=== PATIENT | female | born 1960 | race Caucasian/White ===

== ENCOUNTER → 2018-01-01 | Outpatient (CLI) | payer OTHER ==
[~2018-01-01] MED LIST: CHOL2000 PO; DICL-201 PO; DULO60CA44 PO; GABA-113 PO; GLC/500 PO; LEVO100T PO; MECL1TAB42 PO; MELO7.5T5 PO; PRLSR20 PO; SIMV40TA2 PO
[2018-01-01 12:27] LABS: BASO % 0.9 %; BASO ABS # 0.07 K/uL (0-0.2); EOS % 3.2 %; EOS ABS # 0.24 K/uL (0-0.5); HEMATOCRIT 42.3 % (37-47); HEMOGLOBIN 13.7 g/dL (12.0-16.0); IG# 0.01 K/uL (0.00-0.02); LYMPH % 39.9 %; LYMPH ABS # 2.98 K/uL (1.2-3.4); MEAN CELL VOLUME 93.6 fL (80-100); MEAN CORPUSCULAR HEMOGLOBIN 30.3 pg (25-34); MEAN CORPUSCULAR HGB CONC 32.4 g/dl (32-36); MEAN PLATELET VOLUME 10.7 fL (7.4-10.4); MONO % 5.8 %; MONO ABS # 0.43 K/uL (0.11-0.59); NEUT % 50.1 %; NEUT ABS # 3.74 K/uL (1.4-6.5); PLATELET COUNT 303 K/uL (130-400); RED CELL DISTRIBUTION WIDTH CV 14.6 % (11.5-14.5); RED CELL DISTRIBUTION WIDTH SD 49.4 fL (36.4-46.3); WHITE BLOOD COUNT 7.47 K/uL (4.8-10.8)
[2018-01-01 12:45] LABS: PTT PATIENT 27.1 SECONDS (21.0-31.0)
--- NOTE | 2018-01-01 13:01 | DIAGNOSTIC IMAGING REPORT ---
CHEST 2 VIEWS ROUTINE CLINICAL HISTORY: Preoperative evaluation. COMPARISON STUDY: No previous studies for comparison. FINDINGS: There is a 9 mm nodular density within the right upper lung. There is no consolidation to suggest pneumonia and there is no evidence for pulmonary edema. A dual lead left subclavian pacemaker is in place. There is mild cardiomegaly without evidence for pulmonary edema. No pneumothorax or pleural effusion is present. IMPRESSION: 1. 9 mm nodular density within the right upper lung. This may reflect a lung nodule or rib lesion. A chest CT is recommended to exclude a pulmonary nodule. 2. No acute cardiopulmonary findings. 3. Mild cardiomegaly. Electronically signed by: Oswald Tejada M.D. 01/01/2018 1:00 PM Dictated Date/Time: 01/01/2018 12:57 PM
[2018-01-01 13:55] LABS: BLOOD UREA NITROGEN 20 mg/dl (7-18); CALCIUM 8.7 mg/dl (8.5-10.1); CARBON DIOXIDE 24 mmol/L (21-32); CREATININE 1.01 mg/dl (0.60-1.20); GLUCOSE 114 mg/dl (70-99); POTASSIUM 3.9 mmol/L (3.5-5.1); SODIUM 141 mmol/L (136-145)
== END | disposition home or self-care (01) ==
LOC: C.CPL 11:27
PROVIDERS: ATTEND Orthopaedic Surgery Orthopaedic Surgery of the Spine
DX: Z01.812 Encounter for preprocedural laboratory examination (principal)

== ENCOUNTER 2018-01-17 08:28 | Inpatient (IN) | payer OTHER ==
[2017-12-30 10:57] VITALS: BMI 45.0
--- NOTE | 2017-12-31 16:23 | PAT Medication Instructions ---
Service Date Dec 31, 2017. Current Home Medication List Cholecalciferol (Vitamin D3), 1 CAP PO BID Diclofenac (Voltaren), 75 MG PO BID Duloxetine Hcl (Cymbalta), 60 MG PO HS Gabapentin (Neurontin), 300 MG PO QID Levothyroxine Sodium (Synthroid), 100 MCG PO QAM Meclizine Hcl (Meclizine Hcl), 1 TAB PO TID PRN for VERTIGO Meloxicam (Mobic), 15 MG PO PRN Metformin Hcl (Glucophage), 500 MG PO BID Omeprazole (Prilosec), 40 MG PO BID Simvastatin (Zocor), 40 MG PO QPM Medication Instructions For Your Scheduled Surgery - Check with surgeon for instructions: Meloxicam (Mobic), 15 MG PO PRN Diclofenac (Voltaren), 75 MG PO BID - Hold the following medications the morning of surgery: Metformin Hcl (Glucophage), 500 MG PO BID Cholecalciferol (Vitamin D3), 1 CAP PO BID Gabapentin (Neurontin), 300 MG PO QID Levothyroxine Sodium (Synthroid), 100 MCG PO QAM Meclizine Hcl (Meclizine Hcl), 1 TAB PO TID PRN for VERTIGO (if needed) Omeprazole (Prilosec), 40 MG PO BID - Take the following medications as scheduled the night before surgery: Omeprazole (Prilosec), 40 MG PO BID Simvastatin (Zocor), 40 MG PO QPM Metformin Hcl (Glucophage), 500 MG PO BID Meclizine Hcl (Meclizine Hcl), 1 TAB PO TID PRN for VERTIGO (if needed) Gabapentin (Neurontin), 300 MG PO QID Duloxetine Hcl (Cymbalta), 60 MG PO HS Cholecalciferol (Vitamin D3), 1 CAP PO BID If you have any questions please call us at [phone] or [phone] or [phone]
[2018-01-01 11:30] VITALS: BMI 45.0
--- NOTE | 2018-01-01 11:59 | PAT Medication Instructions ---
Service Date Jan 01, 2018. Current Home Medication List Cholecalciferol (Vitamin D3), 1 CAP PO BID Diclofenac (Voltaren), 75 MG PO BID Duloxetine Hcl (Cymbalta), 60 MG PO HS Gabapentin (Neurontin), 300 MG PO QID Levothyroxine Sodium (Synthroid), 100 MCG PO QAM Meclizine Hcl (Meclizine Hcl), 1 TAB PO TID PRN for VERTIGO Meloxicam (Mobic), 15 MG PO PRN Metformin Hcl (Glucophage), 500 MG PO BID Omeprazole (Prilosec), 40 MG PO BID Simvastatin (Zocor), 40 MG PO QPM Medication Instructions For Your Scheduled Surgery (corrected medication instructions list) - Check with surgeon for instructions: Meloxicam (Mobic), 15 MG PO PRN Diclofenac (Voltaren), 75 MG PO BID - Hold the following medications the morning of surgery: Metformin Hcl (Glucophage), 500 MG PO BID Cholecalciferol (Vitamin D3), 1 CAP PO BID - Take the following medications the morning of surgery with a sip of water: Gabapentin (Neurontin), 300 MG PO QID Levothyroxine Sodium (Synthroid), 100 MCG PO QAM Meclizine Hcl (Meclizine Hcl), 1 TAB PO TID PRN for VERTIGO (if needed) Omeprazole (Prilosec), 40 MG PO BID - Take the following medications as scheduled the night before surgery: Omeprazole (Prilosec), 40 MG PO BID Simvastatin (Zocor), 40 MG PO QPM Metformin Hcl (Glucophage), 500 MG PO BID Meclizine Hcl (Meclizine Hcl), 1 TAB PO TID PRN for VERTIGO (if needed) Gabapentin (Neurontin), 300 MG PO QID Duloxetine Hcl (Cymbalta), 60 MG PO HS Cholecalciferol (Vitamin D3), 1 CAP PO BID If you have any questions please call us at [phone] or [phone] or [phone]
[2018-01-17] VITALS (8 sets, daily range): BP systolic 92–111; BP diastolic 60–77; PULSE 64–82; TEMP 36.5–36.8; O2SAT 90–96; Ht 162.6 cm; Wt 119.0 kg
[~2018-01-17] VITALS: Ht 162.6 cm; Wt 119.0 kg
[~2018-01-17 08:28] MED LIST changes: +ACETAMINOPHEN 500 MG TAB PO SCH; +CEFAZOLIN 1000MG IV PUSH 7.5 ML IV SCH; +CEFAZOLIN 3000MG IV PUSH 22.5 ML IV SCH; +CeleBREX 200 MG CAP PO SCH; +GABAPENTIN 600 MG PO SCH; +LACTATED RINGER'S 1000ML 1,000 ML IV SCH
[2018-01-17] MEDS ORDERED: MIDAZOLAM HCL 1 MG/ML 2ML VIAL ONE (10:04)
[2018-01-17] MEDS ORDERED: FENTANYL CITRATE INJ 50 MCG/1 ML 2 ML VIAL ONE ×4 (10:04→13:09)
--- NOTE | 2018-01-17 10:20 | History & Physical Bridge Note ---
H&P Re-Evaluation Bridge Note: I have examined the patient, reviewed the History & Physical and in the interval since the performance of the History & Physical I have noted the following changes of clinical significance: No changes noted
--- NOTE | 2018-01-17 10:21 | History and Physical ---
History & Physical Date Jan 17, 2018. Chief Complaint Back and leg pain History of Present Illness The patient is a 57 year old female with complaints of back and leg pain Additional History Hepatic Disease: No Endocrine Disorder: No Kidney Disease: No Hypertension: No Heart Disease: No Bleeding Tendencies: No Infectious Diseases: No Other: Diabetes Allergies Coded Allergies: Bupropion (Verified Allergy, Unknown, HIVES, 01/17/18) Cefaclor (Verified Allergy, Unknown, HIVES, 01/17/18) Home Medications Scheduled Cholecalciferol (Vitamin D3), 1 CAP PO BID Diclofenac (Voltaren), 75 MG PO BID Duloxetine Hcl (Cymbalta), 60 MG PO HS Gabapentin (Neurontin), 300 MG PO QID Levothyroxine Sodium (Synthroid), 100 MCG PO QAM Meloxicam (Mobic), 15 MG PO PRN Metformin Hcl (Glucophage), 500 MG PO BID Omeprazole (Prilosec), 40 MG PO BID Simvastatin (Zocor), 40 MG PO QPM Scheduled PRN Meclizine Hcl (Meclizine Hcl), 1 TAB PO TID PRN for VERTIGO Diagnosis Spinal stenosis with spondylolisthesis and neurogenic claudication Plan of Treatment Removal of hardware L4-S1 L3-4 decompression and fusion
[2018-01-17] MEDS ORDERED: CLINDAMYCIN 600 MG/54 ML D5W IV ONE (10:31)
[2018-01-17] MEDS ORDERED: BACITRACIN 50000 UNIT VIAL ONE (10:45)
[2018-01-17] MEDS ORDERED: BUPIVACAINE/EPINEPHRINE 0.5% MPF 1:200,000 30 ML VIAL ONE (10:45)
[2018-01-17] MEDS ORDERED: BUPIVACAINE 0.5 % 5 MG/1 ML PF 10ML VIAL ONE (10:45)
[2018-01-17] MEDS ORDERED: BUPIVACAINE LIPOSOME 1/3% 266 MG/20 ML VIAL ONE (10:45)
[2018-01-17] MEDS ORDERED: SODIUM CHLORIDE 0.9% PF 50 ML VIAL ONE (10:45)
[2018-01-17] MEDS ORDERED: HYDROmorphone INJ 2 MG/ML SYR/VIAL ONE ×3 (11:30→13:57)
[2018-01-17] MEDS ORDERED: ATROPINE SULFATE 0.1 MG/ML 5ML SYR IV PRN (13:45)
[2018-01-17] MEDS ORDERED: HYDROmorphone INJ 2 MG/ML SYR/VIAL IV PRN (13:45)
[2018-01-17] MEDS ORDERED: ONDANSETRON INJ 2 MG/ML 2 ML VIAL IV PRN ×2 (13:45→14:00)
[2018-01-17] MEDS ORDERED: FLOSEAL HEMOSTATIC MATRIX 10ML TOP ONE (13:49)
[2018-01-17] MEDS ORDERED: LIDOCAINE HCL 2% 2 ML VIAL (20MG/ML) ONE (13:53)
[2018-01-17] MEDS ORDERED: DEXAMETHASONE SOD INJ 4 MG/ML VIAL ONE (13:53)
[2018-01-17] MEDS ORDERED: ROCURONIUM BROMIDE 10 MG/ML 5 ML VIAL ONE (13:53)
[2018-01-17] MEDS ORDERED: PROPOFOL IV EMULSION 10 MG/ML 20 ML VIAL ONE ×2 (13:53→14:06)
[2018-01-17] MEDS ORDERED: ONDANSETRON INJ 2 MG/ML 2 ML VIAL ONE ×2 (13:53→13:58)
[2018-01-17] MEDS ORDERED: VOLUVEN IN NSS ONE (13:53)
[2018-01-17] MEDS ORDERED: EpHEDrine SULFATE 50MG/5ML SYR ONE ×2 (13:53→13:58)
[2018-01-17] MEDS: SODIUM CHLORIDE 0.9% 1000ML 1,000 ML IV SCH ×2 (13:56→20:45)
--- NOTE | 2018-01-17 13:56 | [facility] Operative Report ---
Operative Report Operative Date Jan 17, 2018. Pre-Operative Diagnosis Spinal stenosis with spondylolisthesis and neurogenic claudication Post-Operative Diagnosis Same Procedure(s) Performed 1. Removal of posterior segmental instrumentation L4-5 L5-S1. #2 expiration of fusion L4-5 L5-S1. #3 lumbar decompression medial facetectomies foraminotomies L2-3 L3-4. #4 posterior spinal fusion L3-4. #5 posterior spinal fusion L3-4. #6 interbody fusion L3-4. #7 placement peek cage oh by 22 mm L3-4. #8 placement of local autograft in the posterior gutters. #9 placement of infuse collagen sponge, mass graft the posterior gutters and ostial amp in the interbody space. Surgeon Dr. Chacon Substance Addiction Coordinator Surgeon(s) Carmelo Winkler PA-C Estimated Blood Loss 500 Findings Severe spinal stenosis Specimens A: Explanted hardware, lumbar spine Description of Procedure Patient was met with preoperatively case discussed all questions addressed. After informed consent obtained patient was taken to the operative suite underwent intubation placed in the prone position on the Karthik table on top of the Yunier frame. All bony prominences well-padded eyes inspected to ensure no external pressure placed upon the. This point the lumbar spine was prepped and draped in the normal sterile fashion. Sharp dissection with the assistance of Bovie cautery was performed down to and exposing the lamina and transverse processes of L3 and instrumentation at L4 L5-S1 levels bilaterally. Then proceeded remove the posterior segmental instrumentation at L4-L5 and S1 levels bilaterally. The S1 pedicle screw was broken on the left. Fusion mass was explored. Grossly intact. Then performed complete laminectomy of L3 partial laminectomy of L2 addressing severe bilateral lateral recess stenosis and foraminal disease. Pedicle screws are then placed in L3 and L4 bilaterally with the assistance of fluoroscopy and the appropriately sized yin placed. Through a trans-foraminal approach on the left complete discectomy was performed endplates created to subcortical bleeding bone and a 12 x 22 mm peek cage filled with ostium bone graft tapped in position. Rods then compressed locked in final position bilaterally. The transverse processes of L3 and L4 burred to subcortical bleeding bone. Infuse collagen sponge master graft and local autograft placed in the posterior gutters. 15 round NELSON drain inserted. Approximately 140 cc of Exparel injected into the musculature. Incision was then closed with 1 Vicryl in the fascia 2-0 Vicryl subcutaneously and 4-0 Monocryl for final skin closure Steri-Strips sterile dressings placed. Patient was awakened and taken to PACU in stable condition. Please note Gutierrez Winkler was present throughout the entire procedure involved in patient positioning complex portions of the surgery and final skin closure. I attest to the content of the Intraoperative Record and any orders documented therein. Any exceptions are noted below.
[2018-01-17] MEDS ORDERED: KETOROLAC TROMETHAMINE 30 MG/ML VIAL ONE (13:58)
[2018-01-17] MEDS ORDERED: GLYCOPYRROLATE INJ 0.2 MG/ML VIAL ONE (13:58)
[2018-01-17] MEDS ORDERED: NEOSTIGMINE METHYLSULFATE 1 MG/ML 10ML VIAL ONE (13:58)
[2018-01-17] MEDS ORDERED: ALBUTEROL HFA INHALER 8.5 GM INH ONE (13:58)
[2018-01-17] MEDS ORDERED: ACETAMINOPHEN 500 MG TAB PO PRN (14:00)
[2018-01-17] MEDS ORDERED: ACETAMINOPHEN IV 100 ML IV PRN (14:00)
[2018-01-17] MEDS ORDERED: hydrOXYzine HCL 25 MG TAB PO PRN (14:00)
[2018-01-17] MEDS ORDERED: DO NOT ADMINISTER FLU VACCINE PRN (14:00)
[2018-01-17] MEDS ORDERED: NALOXONE HCL 0.4 MG/1 ML VIAL/CARP IV PRN (14:00)
[2018-01-17] MEDS ORDERED: BISACODYL 10 MG SUPP PR PRN (14:00)
[2018-01-17] MEDS ORDERED: ALUMINUM/MAGNESIUM SUSP 30 ML UDC PO PRN (14:00)
[2018-01-17] MEDS ORDERED: MECLIZINE HCL 12.5 MG TAB PO PRN (14:00)
[2018-01-17] MEDS ORDERED: SOD PHOSPHATE/SOD BIPHOSPHATE ENEMA 132 ML BTL PR PRN (14:00)
[2018-01-17] MEDS ORDERED: FAMOTIDINE 20 MG TAB PO PRN (14:00)
[2018-01-17] MEDS ORDERED: METOCLOPRAMIDE HCL INJ 5 MG/ML 2 ML VIAL IV PRN (14:00)
[2018-01-17] MEDS ORDERED: LORAZEPAM INJ 0.5 MG in SYRINGE 0 ML IV PRN (14:00)
[2018-01-17] MEDS ORDERED: DO NOT ADMINISTER PNEUMOCOCCAL VACCINE PRN (14:00)
[2018-01-17] MEDS ORDERED: LORAZEPAM 0.5 MG TAB PO PRN (14:00)
[2018-01-17] MEDS ORDERED: MAGNESIUM HYDROXIDE SUSP 30 ML UDC PO PRN (14:00)
[2018-01-17] MEDS ORDERED: PROMETHAZINE HCL INJ 12.5 MG in SODIUM CHLORIDE 0.9% 50ML 50 ML IV PRN (14:00)
--- NOTE | 2018-01-17 14:02 | DIAGNOSTIC IMAGING REPORT ---
LUMBAR SPINE 2 OR 3 VIEW HISTORY: 57 years-old Female L4-S1 REMOVE HARDWARE/L3-4 DECOMPRESSION/FUSION status post decompression and fusion of the lumbar spine COMPARISON: None available TECHNIQUE: 2 spot fluoroscopic images of the lumbar spine were obtained utilizing 16.4 seconds of fluoroscopy time FINDINGS: Discectomy changes with posterior interbody yin and screw fusion about the mid lumbar spine, exact level not confirmed secondary to degree of magnification. Metallic density wire device is noted directly posterior to the discectomy site. Alignment is satisfactory. Multilevel spondylitic spurring. Postoperative changes below the fusion level also noted. IMPRESSION: Fluoroscopic assistance as above. Please see operative report for further details. The above report was generated using voice recognition software. It may contain grammatical, syntax or spelling errors. Electronically signed by: Nino Benton M.D. 01/17/2018 2:01 PM Dictated Date/Time: 01/17/2018 1:59 PM
[2018-01-17] MEDS ORDERED: HYDROmorphone INJ 0.5 MG/0.5 ML SYR IV PRN (14:30)
--- NOTE | 2018-01-17 14:56 | Anesthesiology Progress Note ---
Anesthesia Post Op Note Date & Time Jan 17, 2018 at 14:56 Vital Signs Pain Intensity: 0 Vital Signs Past 12 Hours Date Time Temp Pulse Resp B/P (MAP) Pulse Ox O2 Delivery O2 Flow Rate FiO2 01/17/18 14:45 84 14 156/81 98 Oxymask 5 01/17/18 14:35 76 14 145/92 94 Oxymask 10 01/17/18 14:25 36.1 80 14 155/88 96 Oxymask 10 01/17/18 09:10 36.7 64 20 111/77 94 Room Air Notes Mental Status: alert / awake / arousable, participated in evaluation Pt Amnestic to Procedure: Yes Nausea / Vomiting: adequately controlled Pain: adequately controlled Airway Patency, RR, SpO2: stable & adequate BP & HR: stable & adequate Hydration State: stable & adequate Anesthetic Complications: no major complications apparent
[2018-01-17] MEDS: OXYCODONE HCL IR 5 MG TAB (IMMEDIATE RELEASE) PO PRN ×2 (15:56→23:11)
[2018-01-17] MEDS ORDERED: LARYING-O-JET KIT (LTA) ONE (16:26)
[2018-01-17] MEDS: GABAPENTIN 300 MG CAP PO SCH ×2 (17:30→20:46)
[2018-01-17] MEDS: CLINDAMYCIN IV 600 MG in DEXTROSE 5% 50ML 50 ML IV SCH (17:31)
[2018-01-17] MEDS ORDERED: PHARMACY GLYCEMIC MGMT CONSULT SCH (19:12)
--- NOTE | 2018-01-17 19:31 | Pharmacy Progress Note ---
Pharmacy Glycemic Short Note 2 Date of Service Jan 17, 2018. OUTPATIENT ANTIDIABETIC REGIMEN: * Metformin 500mg PO BID * A1c = ? Item Value Date Time Bedside Glucose 109 mg/dl H 01/17/18 0908 Bedside Glucose 143 mg/dl H 01/17/18 1440 Bedside Glucose 167 mg/dl H 01/17/18 1709 ASSESSMENT: * Type 2 diabetic with uncertain level of glycemic control admitted today for lumbar spinal stenosis. She is now s/p lumbar spinal decompression/fusion * BSGs thus far have been will controlled, however the patient did receive 10mg IV dexamethasone in the OR today - this combined with lack of insulin coverage w/ meal post-op may lead to quick deterioration in glycemic control * Will initiate a weight based basal/bolus SQ regimen based upon expected high level of insulin resistance tonight going into tomorrow secondary to IV steroids /surgery. Will add additional BSG check overnight to allow for supplemental correction should initial estimates of basal needs fall short. PLAN FOR INPATIENT GLYCEMIC CONTROL: * Hold outpatient oral diabetes medications (metformin) until tolerating a diet and renal fxn confirmed to be adequate to resume * Basal insulin * Lantus 30 units SQ x 1 this evening * Bolus insulin * NovoLog per scale ACHS and at 0200 tonights * Goal Range: Low 110 mg/dL - High 140 mg/dL * Correction Factor: 15 mg/dL/unit * Nutritional / Prandial insulin per carb ratio of 1 unit per 5 grams CHO consumed * Will need to reassess insulin needs tomorrow as effects of dexamethasone may begin to dissipate mid- to late- day tomorrow
[2018-01-17] MEDS: PANTOprazole SOD 40 MG TAB PO SCH (20:46)
[2018-01-17] MEDS: SIMVASTATIN 40 MG TAB PO SCH (20:46)
[2018-01-17] MEDS: DOCUSATE SODIUM/SENNA 50/8.6MG TAB PO SCH (20:46)
[2018-01-17] MEDS: DULOXETINE HCL 60 MG CAP PO SCH (20:46)
[2018-01-17] MEDS: INSULIN ASPART 100 UNITS/ML 3 ML PEN SC SCH (20:53)
[2018-01-17] MEDS ORDERED: LANTUS PER UNIT CHARGE SQ SCH (21:00)
[2018-01-18] MEDS ORDERED: INSULIN ASPART 100 UNITS/ML 3 ML PEN SC ONE (02:00)
[2018-01-18] MEDS: CLINDAMYCIN IV 600 MG in DEXTROSE 5% 50ML 50 ML IV SCH (02:17)
[2018-01-18 02:55] VITALS: BP 108/67; PULSE 73; TEMP 36.9; O2SAT 92
[2018-01-18] MEDS: SODIUM CHLORIDE 0.9% 1000ML 1,000 ML IV SCH (03:58)
[2018-01-18 05:52] LABS: BASO % 0.1 %; BASO ABS # 0.01 K/uL (0-0.2); HEMATOCRIT 30.4 % (37-47); HEMOGLOBIN 10.1 g/dL (12.0-16.0); IG# 0.05 K/uL (0.00-0.02); LYMPH % 10.8 %; LYMPH ABS # 1.68 K/uL (1.2-3.4); MEAN CELL VOLUME 94.7 fL (80-100); MEAN CORPUSCULAR HEMOGLOBIN 31.5 pg (25-34); MEAN CORPUSCULAR HGB CONC 33.2 g/dl (32-36); MEAN PLATELET VOLUME 10.4 fL (7.4-10.4); MONO % 6.5 %; MONO ABS # 1.02 K/uL (0.11-0.59); NEUT % 82.3 %; NEUT ABS # 12.82 K/uL (1.4-6.5); PLATELET COUNT 255 K/uL (130-400); RED CELL DISTRIBUTION WIDTH CV 14.6 % (11.5-14.5); RED CELL DISTRIBUTION WIDTH SD 50.1 fL (36.4-46.3); WHITE BLOOD COUNT 15.58 K/uL (4.8-10.8)
[2018-01-18] MEDS: LEVOTHYROXINE 100 MCG TAB PO SCH (06:15)
[2018-01-18 06:17] LABS: CREATININE 1.19 mg/dl (0.60-1.20); POTASSIUM 4.7 mmol/L (3.5-5.1)
[2018-01-18] MEDS: OXYCODONE HCL IR 5 MG TAB (IMMEDIATE RELEASE) PO PRN ×3 (06:17→22:25)
[2018-01-18 06:37] LABS: HEMOGLOBIN A1C 6.2 % (4.5-5.6)
[2018-01-18 07:17] VITALS: BP 99/65; PULSE 75; TEMP 36.6; O2SAT 90
[2018-01-18] MEDS: PANTOprazole SOD 40 MG TAB PO SCH ×2 (08:23→21:08)
[2018-01-18] MEDS: GABAPENTIN 300 MG CAP PO SCH ×2 (08:23→21:08)
[2018-01-18] MEDS: INSULIN ASPART 100 UNITS/ML 3 ML PEN SC SCH ×4 (08:26→20:38)
--- NOTE | 2018-01-18 08:27 | Orthopedic Progress Note ---
Orthopedic Progress Note Date of Service Jan 18, 2018. Subjective Post OP Day: 1 Additional Notes: Patient presents postop day #1 status post removal of hardware L4 to the sacrum number decompression fusion at L3-4. Sometime last night she started noticing that she is getting regular paresthesias in the left lower extremity. The nursing contacted us through the on-call service and stated that she had some new weakness. Today she states that her leg still feels somewhat weak and feels like is going to buckle on her when she goes to stand up. She has not yet been evaluated by physical therapy. She is not having a lot of pain going down the leg no other numbness or tingling. Objective On exam she is alert and oriented. She is afebrile her vital signs are stable. She did have low oxygen saturation levels in the low 90s overnight. Her lower extremity motor exam reveals no edema. She has blunting to sharp and dull along the lateral portion of her left calf down into the lateral foot. She has weakness with dorsiflexion with strength of 4 out of 5. There is some breakaway when testing however. Calves are supple nontender. Her dressing is intact along the lower portion has some disruption of the tape. NELSON drains in place and holding suction. Date Time Temp Pulse Resp B/P (MAP) Pulse Ox O2 Delivery O2 Flow Rate FiO2 01/18/18 08:00 Room Air 01/18/18 07:17 36.6 75 20 99/65 (76) 90 Room Air 01/18/18 02:55 36.9 73 17 108/67 (81) 92 Room Air 01/17/18 22:56 36.8 82 17 92/64 (73) 91 Room Air 01/17/18 20:20 90 Room Air 01/17/18 19:19 36.8 79 16 96/61 (73) 91 01/17/18 17:45 36.7 82 18 111/67 (82) 93 Nasal Cannula 3.0 01/17/18 16:39 36.6 78 16 105/69 (81) 91 Nasal Cannula 3.0 01/17/18 16:11 36.5 76 18 103/60 (74) 92 Nasal Cannula 3.0 01/17/18 15:40 96 Nasal Cannula 3.0 01/17/18 15:40 96 Nasal Cannula 3.0 01/17/18 15:15 82 14 125/91 93 Nasal Cannula 3 01/17/18 15:05 36.3 78 14 147/89 96 Nasal Cannula 4 01/17/18 14:55 74 14 152/85 98 Nasal Cannula 4 01/17/18 14:45 84 14 156/81 98 Oxymask 5 01/17/18 14:35 76 14 145/92 94 Oxymask 10 01/17/18 14:25 36.1 80 14 155/88 96 Oxymask 10 01/17/18 09:10 36.7 64 20 111/77 94 Room Air Laboratory Results 24 Hours: Test 01/18/18 05:14 White Blood Count 15.58 K/uL Red Blood Count 3.21 M/uL Hemoglobin 10.1 g/dL Hematocrit 30.4 % Mean Corpuscular Volume 94.7 fL Mean Corpuscular Hemoglobin 31.5 pg Mean Corpuscular Hemoglobin Concent 33.2 g/dl Platelet Count 255 K/uL Mean Platelet Volume 10.4 fL Neutrophils (%) (Auto) 82.3 % Lymphocytes (%) (Auto) 10.8 % Monocytes (%) (Auto) 6.5 % Eosinophils (%) (Auto) 0.0 % Basophils (%) (Auto) 0.1 % Neutrophils # (Auto) 12.82 K/uL Lymphocytes # (Auto) 1.68 K/uL Monocytes # (Auto) 1.02 K/uL Eosinophils # (Auto) 0.00 K/uL Basophils # (Auto) 0.01 K/uL Assessment & Plan Assessment: Patient is stable postop day #1 with some weakness that has developed in the left lower extremity. Plan: At this time she has lost a muscle grade strength in left lower extremity. She is not have any pain or anything that would indicate significant hematoma and her NELSON drains holding suction. We will have her work with physical therapy today to get her up and moving. The nurse will change her dressing believe her NELSON drain intact. We will stop them tomorrow to see how she is coming along. Discharge is likely to home will likely hold off until Saturday.
--- NOTE | 2018-01-18 08:43 | Pharmacy Progress Note ---
Pharmacy Glycemic Short Note 2 Date of Service Jan 18, 2018. OUTPATIENT ANTIDIABETIC REGIMEN: * Metformin 500mg PO BID * A1c = 6.2% on 01/18/18 Item Value Date Time Bedside Glucose 109 mg/dl H 01/17/18 0908 Bedside Glucose 143 mg/dl H 01/17/18 1440 Bedside Glucose 167 mg/dl H 01/17/18 1709 Bedside Glucose 210 mg/dl H 01/17/18 2048 Bedside Glucose 126 mg/dl H 01/18/18 0201 Bedside Glucose 119 mg/dl H 01/18/18 0821 ASSESSMENT: * Type 2 diabetic excellent outpatient control per recent A1c. * Pt is maintained on oral antidiabetic agents as an outpatient * Oral agents are not recommended for inpatient use d/t drug interactions, changing PO intake, and difficulty titrating for acute hyper/hypoglycemia. ADA recommends re-initiating outpatient oral agents 1-2 days prior to discharge if/ when appropriate if they were held on admission. * Currently holding oral agents for admission and utilizing SQ basal bolus insulin regimen which is the recommended regimen for inpatient glycemic control. * Initiated weight moderate/high stress based insulin dosing yesterday d/t dxm given in OR. * Titrate based on BSG trends. * AM fasting BSG in goal range this morning. Pt received one dose of Lantus last evening. No further dxm ordered. Unlikely that additional basal insulin will be needed * BSGs well controlled despite dxm. It seems that she doesnt need as much exogenous insulin supplementation as most diabetic patients post-operatively after receiving dxm. Will loosen novolog parameters to prevent hypoglycemia since current parameters are high stress weight based dosing. PLAN FOR INPATIENT GLYCEMIC CONTROL: * Hold outpatient oral diabetes medications (metformin) until tolerating a diet and renal fxn confirmed to be adequate to resume * Basal insulin * No subsequent dosing needed. * Bolus insulin: loosen parameters * NovoLog per scale ACHS and at 0200 tonights * Goal Range: Low 110 mg/dL - High 140 mg/dL * Correction Factor: 20 mg/dL/unit * Nutritional / Prandial insulin per carb ratio of 1 unit per 7 grams CHO consumed
--- NOTE | 2018-01-18 09:01 | Medical Consult ---
Consultation Date of Consultation: Jan 18, 2018. Attending Physician: Ty Chacon D.O. Reason for Consultation: Medical management History of Present Illness This is a 57 y/o female with a history of symptomatic bradycardia s/p pacemaker , HLD, DM II, anxiety, neuropathic pain, hypothyroidism, vertigo, CKD stage II- III, and GERD who presents s/p removal of hardware, lumbar decompression and fusion with Dr. Chacon on 01/17 for medical management. The patient reports feeling well postop. She states her pain is currently well controlled after receiving a muscle relaxant. She does complain of LLE weakness, numbness and tingling since the surgery, although she states that this seems to be improving now. She is tolerating a PO diet well and passing gas. Her Funez catheter was just removed this morning and she has not yet voided on her own. She has not had a bowel movement yet. The patient denies fevers, chills, sweats, chest pain , palpitations, claudication, cough, wheezing, shortness of breath, nausea, vomiting, abdominal pain, dysuria, hematuria, urinary retention, paralysis. Past Medical/Surgical History Symptomatic bradycardia s/p pacemaker 2016 HLD DM II Anxiety Neuropathic pain/fibromyalgia Hypothyroidism Vertigo CKD stage II-III GERD Surgical history: Pacemaker 2016 Prior back surgery Hysterectomy due to abnormal uterine bleeding Tubal ligation Hand surgery Family History Cancer (skin, stomach, uterine, ovarian) Diabetes mellitus Myocardial infarction Social History Smoking Status: Current Every Day Smoker (1-1.5 ppd x 40 years) Smokeless Tobacco Use: No Alcohol Use: none Drug Use: none Marital Status: Housing Status: lives with family (, daughter, foster child, sister) Occupation Status: disabled Allergies Coded Allergies: Bupropion (Verified Allergy, Unknown, HIVES, 01/17/18) Cefaclor (Verified Allergy, Unknown, HIVES, 01/17/18) Current Inpatient Medications Current Inpatient Medications Medications (Trade) Dose Ordered Sig/Murali Route Start Time Stop Time Status Last Admin Dose Admin Promethazine HCl 12.5 mg/Sodium Chloride 50.5 ml @ 202 mls/hr Q6H PRN IV 01/17/18 14:00 02/16/18 13:59 Ondansetron HCl (Zofran Inj) 4 mg Q6H PRN IV 01/17/18 14:00 02/16/18 13:59 Metoclopramide HCl (Reglan Inj) 10 mg Q6H PRN IV 01/17/18 14:00 02/16/18 13:59 Lorazepam (Ativan Tab) 0.5 mg Q8H PRN PO 01/17/18 14:00 02/16/18 13:59 01/18/18 08:26 0.5 MG Lorazepam 0.5 mg/ Syringe 0.25 ml @ 1 mls/min Q8H PRN IV 01/17/18 14:00 02/16/18 13:59 Pneumococcal Polysaccharide Vaccine 1 ea PRN PRN N/A 01/17/18 14:00 02/16/18 13:59 Influenza Virus Vacc Triv Types A&B 1 ea PRN PRN N/A 01/17/18 14:00 02/16/18 13:59 Polyethylene (Miralax Powder Packet) 17 gm Q6 PO 01/19/18 06:00 02/18/18 05:59 Bisacodyl (Dulcolax Supp) 10 mg DAILY PRN [place] 01/17/18 14:00 02/16/18 13:59 Magnesium Hydroxide (Milk Of Magnesia Susp) 30 ml DAILY PRN PO 01/17/18 14:00 02/16/18 13:59 Hydromorphone HCl (Dilaudid Inj) 0.5-1mg prn moder... Q3H PRN IV 01/17/18 14:30 01/31/18 14:29 Oxycodone HCl (Roxicodone Immediate Rel Tab) 5-10mg prn moderate to sev... Q4H PRN PO 01/17/18 14:30 01/31/18 14:29 01/18/18 06:17 10 MG Sodium Chloride 1,000 ml @ 150 mls/hr Q6H40M IV 01/17/18 13:56 02/16/18 13:55 01/18/18 03:58 150 MLS/HR Acetaminophen (Tylenol Tab) 1,000 mg Q8H PRN PO 01/17/18 14:00 02/16/18 13:59 01/17/18 23:10 1,000 MG Acetaminophen 100 ml @ 400 mls/hr Q8H PRN IV 8/3/18 14:00 02/16/18 13:59 Naloxone HCl (Narcan Inj) 0.1 mg Q5M PRN IV 01/17/18 14:00 02/16/18 13:59 Senna/Docusate Sodium (Senokot S Tab) 2 tab HS PO 01/17/18 21:00 02/16/18 20:59 01/17/18 20:46 2 TAB Sodium Biphosphate/ Sodium Phosphate (Fleet Enema) 132 ml ONE PRN [place] 01/17/18 14:00 02/16/18 13:59 Hydroxyzine HCl (Vistaril Tab) 25 mg Q8H PRN PO 01/17/18 14:00 02/16/18 13:59 Al Hydroxide/Mg Hydroxide (Maalox Susp) 30 ml Q6H PRN PO 01/17/18 14:00 02/16/18 13:59 Famotidine (Pepcid Tab) 20 mg Q12 PRN PO 01/17/18 14:00 02/16/18 13:59 Diphenhydramine HCl (Benadryl Cap) 25 mg Q6H PRN PO 01/17/18 14:00 02/16/18 13:59 Duloxetine HCl (Cymbalta Cap) 60 mg HS PO 01/17/18 21:00 02/16/18 20:59 01/17/18 20:46 60 MG Gabapentin (Neurontin Cap) 300 mg QID PO 01/17/18 17:00 02/16/18 16:59 01/18/18 08:23 300 MG Levothyroxine Sodium (Synthroid Tab) 100 mcg DAILYBB PO 01/18/18 06:00 02/17/18 05:59 01/18/18 06:15 100 MCG Meclizine HCl (Antivert Tab) 25 mg TID PRN PO 01/17/18 14:00 02/16/18 13:59 Simvastatin (Zocor Tab) 40 mg QPM PO 01/17/18 21:00 02/16/18 20:59 01/17/18 20:46 40 MG Pantoprazole Sodium (Protonix Tab) 40 mg BID PO 01/17/18 21:00 02/16/18 20:59 01/18/18 08:23 40 MG Miscellaneous Information (Consult Glycemic Management Pharmacy) 1 ea UD N/A 01/17/18 19:12 02/16/18 19:11 Insulin Aspart (novoLOG ASPART) SLIDING SCALE ACHS SC 01/17/18 21:00 02/16/18 20:59 01/18/18 08:26 7 UNITS Review of Systems See HPI for pertinent positives and negatives. All other systems reviewed and negative. Physical Exam Date Time Temp Pulse Resp B/P (MAP) Pulse Ox O2 Delivery O2 Flow Rate FiO2 01/18/18 08:00 Room Air 01/18/18 07:17 36.6 75 20 99/65 (76) 90 Room Air 01/18/18 02:55 36.9 73 17 108/67 (81) 92 Room Air 01/17/18 22:56 36.8 82 17 92/64 (73) 91 Room Air 01/17/18 20:20 90 Room Air 01/17/18 19:19 36.8 79 16 96/61 (73) 91 01/17/18 17:45 36.7 82 18 111/67 (82) 93 Nasal Cannula 3.0 01/17/18 16:39 36.6 78 16 105/69 (81) 91 Nasal Cannula 3.0 01/17/18 16:11 36.5 76 18 103/60 (74) 92 Nasal Cannula 3.0 01/17/18 15:40 96 Nasal Cannula 3.0 01/17/18 15:40 96 Nasal Cannula 3.0 01/17/18 15:15 82 14 125/91 93 Nasal Cannula 3 01/17/18 15:05 36.3 78 14 147/89 96 Nasal Cannula 4 01/17/18 14:55 74 14 152/85 98 Nasal Cannula 4 01/17/18 14:45 84 14 156/81 98 Oxymask 5 01/17/18 14:35 76 14 145/92 94 Oxymask 10 01/17/18 14:25 36.1 80 14 155/88 96 Oxymask 10 01/17/18 09:10 36.7 64 20 111/77 94 Room Air General appearance: +Morbidly obese. Well-developed, well-nourished, no apparent distress Head: Normocephalic, atraumatic Eyes: Normal inspection, PERRL, EOMI ENT: Normal ENT inspection, hearing grossly normal, pharynx normal Neck: Supple, no JVD, trachea midline Respiratory/Chest: Lungs clear to auscultation, normal breath sounds, no respiratory distress Cardiovascular: Regular rate & rhythm, no gallop, no murmur Abdomen/GI: Normal bowel sounds, non-tender, soft Extremities/Musculoskeletal: +Back incision dressed, c/d/i. NELSON drain in place. No calf tenderness, no pedal edema Neurological/Psych: +Decreased sensation LLE compared to right. Motor strength mildly diminished LLE. Alert, normal mood/affect, oriented x 3 Skin: Normal color, warm/dry, no rash Laboratory Results Last 24 Hours Test 01/17/18 09:08 01/17/18 09:38 01/17/18 14:40 01/17/18 17:09 Bedside Glucose 109 mg/dl 143 mg/dl 167 mg/dl Hepatitis C Antibody Screen NEG Test 01/17/18 20:48 01/18/18 02:01 01/18/18 05:14 01/18/18 08:21 Bedside Glucose 210 mg/dl 126 mg/dl 119 mg/dl White Blood Count 15.58 K/uL Red Blood Count 3.21 M/uL Hemoglobin 10.1 g/dL Hematocrit 30.4 % Mean Corpuscular Volume 94.7 fL Mean Corpuscular Hemoglobin 31.5 pg Mean Corpuscular Hemoglobin Concent 33.2 g/dl Platelet Count 255 K/uL Mean Platelet Volume 10.4 fL Neutrophils (%) (Auto) 82.3 % Lymphocytes (%) (Auto) 10.8 % Monocytes (%) (Auto) 6.5 % Eosinophils (%) (Auto) 0.0 % Basophils (%) (Auto) 0.1 % Neutrophils # (Auto) 12.82 K/uL Lymphocytes # (Auto) 1.68 K/uL Monocytes # (Auto) 1.02 K/uL Eosinophils # (Auto) 0.00 K/uL Basophils # (Auto) 0.01 K/uL RDW Standard Deviation 50.1 fL RDW Coefficient of Variation 14.6 % Immature Granulocyte % (Auto) 0.3 % Immature Granulocyte # (Auto) 0.05 K/uL Sodium Level 137 mmol/L Potassium Level 4.7 mmol/L Chloride Level 107 mmol/L Carbon Dioxide Level 25 mmol/L Anion Gap 5.0 mmol/L Blood Urea Nitrogen 19 mg/dl Creatinine 1.19 mg/dl Est Creatinine Clear Calc Drug Dose 66.2 ml/min Estimated GFR () 58.7 Estimated GFR (Non- 50.6 BUN/Creatinine Ratio 15.7 Random Glucose 118 mg/dl Estimated Average Glucose 131 mg/dl Hemoglobin A1c 6.2 % Calcium Level 8.0 mg/dl Assessment & Plan 57 y/o female with a history of symptomatic bradycardia s/p pacemaker, HLD, DM II, anxiety, neuropathy, hypothyroidism, vertigo, CKD stage II-III, and GERD who presents s/p removal of hardware, lumbar decompression and fusion with Dr. Chacon on 01/17 for medical management. S/p removal of hardware, lumbar decompression and fusion--POD #1 -Pain management, DVT prophylaxis, and PT/OT as per primary team -BP 90s/60s this morning. Continue current liter of IVF and monitor -LLE weakness, numbness, tingling improving. Pt less than 24 hours postop still , continue to monitor for now H/o symptomatic bradycardia s/p pacemaker--noted HLD--stable -Continue Zocor 40 mg PO qd DM II--stable -Hold metformin -Pharmacy consulted for glycemic management -BSG over 200 last night, received Lantus 30 units -BSGs well controlled this morning -Insulin sliding scale -Check BSGs q ac and qhs -HgbA1c 6.2 here Anxiety, neuropathic pain, fibromyalgia -Continue Cymbalta 60 mg PO hs, gabapentin 300 mg PO qam and 600 mg PO hs Hypothyroidism -Continue Synthroid 100 mcg PO qd Vertigo -Continue meclizine prn CKD stage II-III--stable GERD -Prilosec converted to Protonix 40 mg PO BID Code Status -Level I, FULL RESUSCITATION STATUS Thank you for this consultation. We will continue to follow.
[2018-01-18] MEDS ORDERED: NURSING VERBAL MED ORDER ONE ×2 (09:30→11:00)
[2018-01-18] MEDS ORDERED: GABA-1219 PO (09:33)
[2018-01-18] MEDS ORDERED: COUGH DROP (SUGAR FREE) LOZ 24 LOZ/1 BOX LOZ ONE (10:30)
[2018-01-18] MEDS ORDERED: NURSING DECISION MEDICATION ORDER SCH (10:45)
[2018-01-18] MEDS ORDERED: COUGH DROP (SUGAR FREE) LOZ 24 LOZ/1 BOX LOZ PRN (10:45)
[2018-01-18] MEDS: KETOROLAC TROMETHAMINE 30 MG/ML VIAL IV. PRN ×2 (11:00→22:26)
[2018-01-18 11:09] VITALS: BP 95/61; PULSE 62; TEMP 36.7; O2SAT 91
[2018-01-18 14:59] VITALS: BP 108/66; PULSE 70; TEMP 37; O2SAT 91
[2018-01-18] MEDS: METFORMIN HCL 500 MG TAB PO SCH (17:12)
[2018-01-18] MEDS: DOCUSATE SODIUM/SENNA 50/8.6MG TAB PO SCH (21:08)
[2018-01-18] MEDS: DULOXETINE HCL 60 MG CAP PO SCH (21:09)
[2018-01-18] MEDS: SIMVASTATIN 40 MG TAB PO SCH (21:45)
[2018-01-18 23:06] VITALS: BP 116/69; PULSE 62; TEMP 37; O2SAT 93
[2018-01-19] MEDS: POLYETHYLENE (MIRALAX) 17 GM PACK PO SCH ×4 (05:43→23:16)
[2018-01-19] MEDS: LEVOTHYROXINE 100 MCG TAB PO SCH (05:43)
[2018-01-19 06:36] VITALS: BP 101/61; PULSE 61; TEMP 36.9; O2SAT 93
[2018-01-19] MEDS: INSULIN ASPART 100 UNITS/ML 3 ML PEN SC SCH ×4 (07:22→20:42)
[2018-01-19] MEDS: GABAPENTIN 300 MG CAP PO SCH ×2 (07:25→20:42)
[2018-01-19] MEDS: PANTOprazole SOD 40 MG TAB PO SCH ×2 (07:25→20:42)
[2018-01-19] MEDS: METFORMIN HCL 500 MG TAB PO SCH ×2 (07:26→17:30)
[2018-01-19] MEDS: OXYCODONE HCL IR 5 MG TAB (IMMEDIATE RELEASE) PO PRN ×3 (07:27→17:31)
[2018-01-19 08:30] LABS: HEMATOCRIT 30.9 % (37-47); HEMOGLOBIN 9.8 g/dL (12.0-16.0); MEAN CELL VOLUME 95.4 fL (80-100); MEAN CORPUSCULAR HEMOGLOBIN 30.2 pg (25-34); MEAN CORPUSCULAR HGB CONC 31.7 g/dl (32-36); PLATELET COUNT 235 K/uL (130-400); RED CELL DISTRIBUTION WIDTH CV 15.2 % (11.5-14.5); RED CELL DISTRIBUTION WIDTH SD 53.1 fL (36.4-46.3); WHITE BLOOD COUNT 11.81 K/uL (4.8-10.8)
[2018-01-19 08:48] LABS: CALCIUM 8.3 mg/dl (8.5-10.1); CREATININE 1.08 mg/dl (0.60-1.20); POTASSIUM 4.7 mmol/L (3.5-5.1)
--- NOTE | 2018-01-19 08:57 | Pharmacy Progress Note ---
Pharmacy Glycemic Sign Off Nt Date of Service Jan 19, 2018. Assessment & Plan ASSESSMENT: * Pharmacy was consulted by Dr Castro on 01/17/18 for glycemic control and to write orders per [facility] inpatient glycemic control protocol. * Major changes made by pharmacy to antidiabetic regimen include: * Holding metformin x 24hrs post operatively and using SQ basal bolus insulin regimen * Transitioned back to outpatient regimen of metformin * Patient has been receiving/requiring 0 units of insulin per day for adequate glycemic control * BSGs ranging 116 - 147 mg/dl * Regimen has only required minor adjustments over the past 48hrs to achieve this level of control * Do not anticipate further changes in patient status that would quickly deteriorate glycemic control (i.e. patient to be NPO for upcoming procedure, steroids tapering, starting tube feedings, etc). * Please see recommendations for outpatient antidiabetic regimen below. PLAN FOR INPATIENT GLYCEMIC CONTROL: No changes needed to current regimen. * No basal insulin needed * Continue NovoLog per scale ACHS/Q6hrs while NPO for stress hyperglycemia only * Goal range = 110 140 mg/dl * CF = 25 mg/dl/unit * CR = 1 unit for ever -- g CHO consumed * Metformin 500mg PO BIDM * A1c added to discharge instructions to be communicated to PCP. * Pharmacy is signing off of glycemic consult and will no longer be making adjustments to inpatient regimen. Please feel free to re-consult if needed. Thank you. DISCHARGE RECOMMENDATIONS: * A1c 6.2 % on 01/18/18 * No changes needed to outpatient regimen.
--- NOTE | 2018-01-19 09:18 | Orthopedic Progress Note ---
Orthopedic Progress Note Date of Service Jan 19, 2018. Subjective Post OP Day: 2 Additional Notes: Patient presents postoperative day #2. She is doing much better today. She feels that the weakness in her left leg has improved. She has been up walking with physical therapy able to go up and down steps. She has had minimal buckling of her left knee. She denies any other numbness, tingling, paresthesias. Objective calves soft nontender, N/V intact, dressing C/D/I, CMS intact Date Time Temp Pulse Resp B/P (MAP) Pulse Ox O2 Delivery O2 Flow Rate FiO2 01/19/18 06:36 36.9 61 17 101/61 (74) 93 Room Air 01/18/18 23:35 Room Air 01/18/18 23:06 37.0 62 17 116/69 (85) 93 Room Air 01/18/18 15:00 Room Air 01/18/18 14:59 37.0 70 18 108/66 (80) 91 01/18/18 11:09 36.7 62 18 95/61 (72) 91 Room Air Laboratory Results 24 Hours: Test 01/19/18 08:17 Hematocrit 30.9 % Hemoglobin 9.8 g/dL Assessment & Plan Assessment: Patient is stable postop day # with improved weakness that has developed in the left lower extremity. Plan: The patient is improving postoperative day #2. We will continue with PT and OT. Continue with pain control measures. Will monitor her drainage and likely be able to discharge her to home tomorrow.
--- NOTE | 2018-01-19 10:30 | Hospitalist Progress Note ---
Hospitalist Progress Note Date of Service Jan 19, 2018. Subjective Pt evaluation today including: conversation w/ patient, physical exam, chart review, lab review, review of inpatient medication list Pain: Well controlled PO Intake: Tolerating PO diet Voiding: no voiding problems Patient reports feeling better today. She states the weakness, numbness and tingling in her LLE is improved compared to yesterday. She worked with PT today and was able to ambulate better. She states her back pain is controlled. She is tolerating a PO diet and voiding on her own. She is passing gas. She has not yet had a bowel movement but has started a Miralax regimen per ortho. The patient denies fevers, chills, sweats, chest pain, palpitations, claudication, cough, wheezing, shortness of breath, nausea, vomiting, abdominal pain, dysuria, hematuria, urinary retention, paralysis. Additional Comments: See HPI for pertinent positives and negatives. All other systems reviewed and negative. Objective Vital Signs Date Time Temp Pulse Resp B/P (MAP) Pulse Ox O2 Delivery O2 Flow Rate FiO2 01/19/18 07:27 Room Air 01/19/18 06:36 36.9 61 17 101/61 (74) 93 Room Air 01/18/18 23:35 Room Air 01/18/18 23:06 37.0 62 17 116/69 (85) 93 Room Air 01/18/18 15:00 Room Air 01/18/18 14:59 37.0 70 18 108/66 (80) 91 01/18/18 11:09 36.7 62 18 95/61 (72) 91 Room Air Physical Exam Notes: General appearance: +Morbidly obese. Well-developed, well-nourished, no apparent distress Head: Normocephalic, atraumatic Eyes: Normal inspection, PERRL, EOMI ENT: Normal ENT inspection, hearing grossly normal, pharynx normal Neck: Supple, no JVD, trachea midline Respiratory/Chest: Lungs clear to auscultation, normal breath sounds, no respiratory distress Cardiovascular: Regular rate & rhythm, no gallop, no murmur Abdomen/GI: Normal bowel sounds, non-tender, soft Extremities/Musculoskeletal: +Back incision dressed, c/d/i. NELSON drain in place. No calf tenderness, no pedal edema Neurological/Psych: +Decreased sensation LLE compared to right but improved. Motor strength mildly diminished LLE. Alert, normal mood/affect, oriented x 3 Skin: Normal color, warm/dry, no rash Laboratory Results Last 24 Hours Test 01/18/18 12:13 01/18/18 16:51 01/18/18 20:26 01/19/18 06:49 Bedside Glucose 116 mg/dl 147 mg/dl 127 mg/dl 116 mg/dl Test 01/19/18 08:17 White Blood Count 11.81 K/uL Red Blood Count 3.24 M/uL Hemoglobin 9.8 g/dL Hematocrit 30.9 % Mean Corpuscular Volume 95.4 fL Mean Corpuscular Hemoglobin 30.2 pg Mean Corpuscular Hemoglobin Concent 31.7 g/dl RDW Standard Deviation 53.1 fL RDW Coefficient of Variation 15.2 % Platelet Count 235 K/uL Mean Platelet Volume 10.0 fL Sodium Level 140 mmol/L Potassium Level 4.7 mmol/L Chloride Level 108 mmol/L Carbon Dioxide Level 28 mmol/L Anion Gap 5.0 mmol/L Blood Urea Nitrogen 21 mg/dl Creatinine 1.08 mg/dl Est Creatinine Clear Calc Drug Dose 73.0 ml/min Estimated GFR () 66.0 Estimated GFR (Non- 56.9 BUN/Creatinine Ratio 19.8 Random Glucose 126 mg/dl Calcium Level 8.3 mg/dl Assessment and Plan 57 y/o female with a history of symptomatic bradycardia s/p pacemaker, HLD, DM II, anxiety, neuropathy, hypothyroidism, vertigo, CKD stage II-III, and GERD who presents s/p removal of hardware, lumbar decompression and fusion with Dr. Chacon on 01/17 for medical management. S/p removal of hardware, lumbar decompression and fusion--POD #2 -Pain management, DVT prophylaxis, and PT/OT as per primary team -BP improved, remains normotensive -LLE weakness, numbness, tingling continues to improve -Hgb stable postop H/o symptomatic bradycardia s/p pacemaker--noted HLD--stable -Continue Zocor 40 mg PO qd DM II--stable -Metformin 500 mg PO BID resumed, pharmacy signed off glycemic management. BSGs well controlled -Insulin sliding scale -Check BSGs q ac and qhs -HgbA1c 6.2 here Anxiety, neuropathic pain, fibromyalgia -Continue Cymbalta 60 mg PO hs, gabapentin 300 mg PO qam and 600 mg PO hs Hypothyroidism -Continue Synthroid 100 mcg PO qd Vertigo -Continue meclizine prn CKD stage II-III--stable GERD -Prilosec converted to Protonix 40 mg PO BID Code Status -Level I, FULL RESUSCITATION STATUS Pt. is stable from a medical standpoint, we will sign off. Clear for discharge as per primary team.
[2018-01-19 15:15] VITALS: BP 119/73; PULSE 61; TEMP 36.7; O2SAT 97
[2018-01-19] MEDS: KETOROLAC TROMETHAMINE 30 MG/ML VIAL IV. PRN (20:41)
[2018-01-19] MEDS: DOCUSATE SODIUM/SENNA 50/8.6MG TAB PO SCH (20:41)
[2018-01-19] MEDS: SIMVASTATIN 40 MG TAB PO SCH (20:42)
[2018-01-19] MEDS: DULOXETINE HCL 60 MG CAP PO SCH (20:42)
[2018-01-19 23:11] VITALS: BP 117/67; PULSE 63; TEMP 37.1; O2SAT 93
[2018-01-20] MEDS: LEVOTHYROXINE 100 MCG TAB PO SCH (05:19)
[2018-01-20] MEDS: POLYETHYLENE (MIRALAX) 17 GM PACK PO SCH ×2 (05:20→12:00)
[2018-01-20 05:56] LABS: HEMATOCRIT 31.8 % (37-47); HEMOGLOBIN 10.2 g/dL (12.0-16.0); MEAN CELL VOLUME 94.4 fL (80-100); MEAN CORPUSCULAR HEMOGLOBIN 30.3 pg (25-34); MEAN CORPUSCULAR HGB CONC 32.1 g/dl (32-36); MEAN PLATELET VOLUME 10.9 fL (7.4-10.4); PLATELET COUNT 281 K/uL (130-400); RED CELL DISTRIBUTION WIDTH CV 14.8 % (11.5-14.5); RED CELL DISTRIBUTION WIDTH SD 50.6 fL (36.4-46.3); WHITE BLOOD COUNT 10.96 K/uL (4.8-10.8)
[2018-01-20 06:32] VITALS: BP 117/80; PULSE 71; TEMP 37; O2SAT 96
[2018-01-20 07:29] VITALS: BP 117/80; PULSE 71; TEMP 37; O2SAT 96
[2018-01-20] MEDS: INSULIN ASPART 100 UNITS/ML 3 ML PEN SC SCH ×2 (07:31→12:00)
[2018-01-20] MEDS: METFORMIN HCL 500 MG TAB PO SCH (07:35)
[2018-01-20] MEDS: PANTOprazole SOD 40 MG TAB PO SCH (07:35)
[2018-01-20] MEDS: GABAPENTIN 300 MG CAP PO SCH (07:35)
[2018-01-20] MEDS: OXYCODONE HCL IR 5 MG TAB (IMMEDIATE RELEASE) PO PRN (07:38)
[2018-01-20] MEDS ORDERED: RXC5 PO (07:42)
--- NOTE | 2018-01-20 07:42 | Discharge Instructions ---
Discharge Instructions Date of Service Jan 20, 2018. Admission Reason for Admission: Lumbar Spinal Stenosis Discharge Discharge Diagnosis / Problem: lumbar stenosis Discharge Goals Goal(s): Improve function Activity Recommendations Activity Limitations: per Instructions/Follow-up section . Instructions / Follow-Up Instructions / Follow-Up ACTIVITY RECOMMENDATIONS: SELF CARE INSTRUCTIONS AFTER THORACIC/LUMBAR FUSIONS 1. You may walk to your tolerance. It is good exercise for your legs and back. Expect some back and intermittent leg aches and pains. 2. You may perform "counter-top" level activities (make a sandwich, sujatha with a project, etc.). 3. No bending or lifting of more than 10 pounds or back twisting of any nature (roll like a log when turning in bed). 4. You may ride in a car for 20-30 minutes at a time. No driving until after your first visit with your doctor. 5. Frequent changes of position and restricting sitting to 30 minutes at a time will help limit the amount of back spasms and stiffness you may experience. 6. You may discontinue the use of ambulatory aids (cane, crutches, etc.) once your strength and confidence allow. 7. You may siding applicator the shower and let water strike your incision when you arrive home at least once daily. Do not take a tub bath, sit in a hot tub or go into a swimming pool until after your first recheck in the office. SPECIAL CARE INSTRUCTIONS: VERY IMPORTANT TO READ AND REVIEW A. Your surgical incision has been closed with a cosmetic suture under the skin that will dissolve in about 6 weeks. In 14 days, you can use a pair of clean scissors and cut the suture that is left outside of the skin at the ends of your incision. 1. The small skin tapes can be removed 7 days after surgery if they have not fallen off by that point. 2. You may keep the wound open to air as much as possible to promote healing after post-op day number 5 unless told otherwise by your doctor. 3. If you think the wound looks like it is becoming infected (redness or worsening drainage) and/or you are experiencing fever, chill or worsening back pain and muscle spasms, contact the office so that we may evaluate you as soon as possible. B. Complications are uncommon, but please contact us if you have any signs or symptoms of: 1. wound infection (fever higher than 102.5 degrees F, redness, separation of wound, drainage, or increasing pain from the incision) 2. blood clots in legs (pain, swelling, redness and warmth in legs) 3. urinary tract infection (fever higher than 102.5 degrees F, burning upon urination or increased frequency of urination) 4. nerve problems (inability to walk on your toes or heels, numbness, loss of bowel or bladder control) 5. any other symptoms that concern you C. Please call the office at if you have any concerns or questions about your operation or recovery. D. No smoking! Smoking drastically decreases the chance of a solid fusion. E. Do not take any anti-inflammatory medications (Indocin, Advil, Motrin, Aspirin, Naprosyn, etc.) as these may inhibit the chance of a solid fusion. Tylenol is okay to take for pain. MANAGING PAIN AFTER SPINAL SURGERY 1. Narcotic medication is intended for short-term use and will be provided for surgical pain. Surgical pain usually lasts for a period of 4-6 weeks. Narcotic medication includes Percocet, Vicodin, Darvocet, Tylenol #3 or Lortab. 2. Longer-term pain is more appropriately treated with non-narcotic medication such as Tylenol ES. 3. Muscle spasm is not appropriately treated with narcotics. Muscle relaxers such as Soma, Flexeril or Skelaxin can be used along with Tylenol ES. 4. Remember that we all live with some "aches and pains". This is not unusual or uncommon after an injury or as we get older. a. Back pain is expected and may include muscle spasms for 4 to 6 weeks after surgery. The pain should gradually improve. If the pain worsens for no apparent reason, please contact the office. b. Intermittent leg pain may also be experienced and should not be concerned about unless it worsens for no apparent reason. If so, please contact the office. 5. We will provide appropriate medication within the normal guidelines of their prescribed use. We will also be very cautious and aware of potential abuse and extended duration of patients' medication needs. a. Pain medications are for your comfort and to assist with sleep and rest so that the tissue can heal. They are not provided in order to return to normal activity and should not be used through the day. To do so or worsening pain at night can result from ongoing tissue damage and development of tolerance to the prescribed medicine. 6. Please allow 2-3 days to process refills. Prescriptions will not be mailed but must be picked up at the office. FOLLOW UP VISIT: Keep your scheduled follow-up appointment. Any questions, please call the office at . Current Hospital Diet Patient's current hospital diet: Diabetes Type 2 Diet Discharge Diet Recommended Diet: Regular Diet Procedures Procedures Performed: 1. Removal of posterior segmental instrumentation L4-5 L5-S1. #2 expiration of fusion L4-5 L5-S1. #3 lumbar decompression medial facetectomies foraminotomies L2-3 L3-4. #4 posterior spinal fusion L3-4. #5 posterior spinal fusion L3-4. #6 interbody fusion L3-4. #7 placement peek cage oh by 22 mm L3-4. #8 placement of local autograft in the posterior gutters. #9 placement of infuse collagen sponge, mass graft the posterior gutters and ostial amp in the interbody space. Pending Studies Studies pending at discharge: no Laboratory Results Hemoglobin A1c Test 01/18/18 05:14 Range/Units Estimated Average Glucose 131 mg/dl Hemoglobin A1c 6.2 H 4.5-5.6 % Medical Emergencies . Who to Call and When: Medical Emergencies: If at any time you feel your situation is an emergency, please call 911 immediately. . Non-Emergent Contact Non-Emergency issues call your: Primary Care Provider . "Provider Documentation" section prepared by Ty Chacon. .
--- NOTE | 2018-01-20 08:06 | Anesthesiology Progress Note ---
Anesthesia Post Op Note Date & Time Jan 20, 2018 at 08:05 Vital Signs Vital Signs Past 12 Hours Date Time Temp Pulse Resp B/P (MAP) Pulse Ox O2 Delivery O2 Flow Rate FiO2 01/20/18 07:29 37.0 71 18 96 Room Air 01/20/18 07:00 Room Air 01/20/18 06:32 37.0 71 18 117/80 (92) 96 Room Air 01/19/18 23:15 Room Air 01/19/18 23:11 37.1 63 17 117/67 (84) 93 Room Air Notes Mental Status: alert / awake / arousable, participated in evaluation Pt Amnestic to Procedure: Yes Nausea / Vomiting: adequately controlled Pain: adequately controlled Airway Patency, RR, SpO2: stable & adequate BP & HR: stable & adequate Hydration State: stable & adequate Anesthetic Complications: no major complications apparent
[2018-01-20] MEDS ORDERED: SULF800T23 PO (11:54)
--- NOTE | 2018-01-20 12:03 | Clinical Documentation Query ---
[facility] : CLINICAL DOCUMENTATION QUERIES QUERY 1 OF 2 Patient is a 57 year old female who on 01/17 underwent removal of prior lumbosacral instrumentation, exploration, decompression, and posterior spinal instrumented and interbody fusion. Preoperative H&H (01/01/18) was 13.7 g/dl and 42.3%. This a.m. values were 10.2 g/dl and 31.8%. EBL for the procedure was 575 with subsequently documented losses of an additional 825 ml's. Additionally, net I/O is positive for 2,600 ml's. She is being monitored with I/O including drain outputs and serial hematology. As appropriate, consider documentation as suggested below. Thank you. In your clinical opinion is this patient being managed for: ( x ) Acute blood loss anemia ( ) Not Agree ( ) Other explanation of clinical findings (No explanation is considered a No Response) ( ) Unable to determine ( ) Need to Discuss (Phone CDS or qliq) (No discussion is considered a No Response) The medical record reflects the following clinical findings, treatment, and risk factors. Clinical Indicators: As above Treatment: She is being monitored with I/O including drain outputs and serial hematology Risk Factors: Acute perioperative blood losses, IVF administration. QUERY 2 OF 2 UA cloudy, positive for nitrite, leukocyte esterase, > 30 WBC, 10-30 RBC, 10-2- epithelial cells, 4+ bacteria. Urine culture pending. As appropriate, consider documentation as suggested below as this impacts accurate DRG assignment. Thank you. In your clinical opinion is this patient being managed for: ( x ) (Possible/Suspected) Urinary tract infection ( ) Not Agree ( ) Other explanation of clinical findings (No explanation is considered a No Response) ( ) Unable to determine ( ) Need to Discuss (Phone CDS or qliq) (No discussion is considered a No Response) The medical record reflects the following clinical findings, treatment, and risk factors. Clinical Indicators: As above Treatment: UA ,C&S Risk Factors: Age, gender Please clarify and document your clinical opinion in the progress notes and discharge summary. Terms such as "probable", "suspected", "likely", "questionable", "possible", or "still to be ruled out" are acceptable. IF IN AGREEMENT, YOU MUST DOCUMENT ABOVE DIAGNOSTIC STATEMENT IN DAILY PROGRESS NOTES AND DISCHARGE SUMMARY. This document is not part of the patient's record. Thank You, Regino Palacios RN [phone]
[2018-01-20] MEDS ORDERED: SULFAMETHOXAZOLE/TRIMETHOPRIM DS 800/160MG TAB PO ONE (12:15)
--- NOTE | 2018-01-20 13:34 | Discharge Summary ---
Orthopedic Discharge Summary Admission Date/Reason Jan 17, 2018 at 10:00 Lumbar Spinal Stenosis. Discharge Date/Disposition Jan 20, 2018 Home Diagnosis Principal Diagnosis: Lumbar spinal stenosis Admission Physical Exam As per Admitting History & Physical. Hospital Course Patient underwent lumbar decompression fusion tolerated this well taken with orthopedic for postoperative. Postop and when she was up and ambulatory progressed the postop day #2 and 3 leg pain improved back pain controlled NELSON drain decreasing appropriately. Subsequently she was discharged home. Discharge orders and instructions can be found in the chart for further review. Discharge Instructions Please refer to the electronic Patient Visit Report (Discharge Instructions) for additional information.
--- NOTE | 2018-01-20 13:45 | Hospitalist Progress Note ---
Hospitalist Progress Note Date of Service Jan 20, 2018. (Savannah Valdovinos CRNP) Subjective Pt evaluation today including: conversation w/ patient, physical exam, chart review, lab review, review of inpatient medication list Voiding: voiding difficulty Main complaint is burning upon urination and hesitancy, otherwise feeling well. ROS Constitutional: no chills, aches, sweats or fever Respiratory: no sob,cough, sputum, or wheezing Cardiac: no chest pain, palpitations, edema, orthopnea or lightheadedness GI: no abdominal pain, nausea, vomiting, diarrhea or constipation : see hpi Extremities: no joint pain or weakness Skin: no rash All other systems reviewed and negative (Savannah Valdovinos CRNP) Medications Medications Administered Medications (Trade) Dose Ordered Sig/Murlai Route Start Time Stop Time Status Last Admin Dose Admin Lactated Ringer's 1,000 ml @ 15 mls/hr Q24H IV 01/17/18 06:00 01/18/18 05:59 DC 01/17/18 09:40 15 MLS/HR Acetaminophen (Tylenol Tab) 1,000 mg PREOP PO 01/17/18 06:00 01/17/18 18:00 DC 01/17/18 09:42 1,000 MG Celecoxib (CeleBREX CAP) 200 mg PREOP PO 01/17/18 06:00 01/17/18 18:00 DC 01/17/18 09:42 200 MG Gabapentin (Neurontin Cap) 600 mg PREOP PO 01/17/18 06:00 01/17/18 18:00 DC 01/17/18 09:41 300 MG Clindamycin Phosphate (Cleocin 600mg/ 54ml D5W) 600 mg STK-MED ONCE IV 01/17/18 10:31 01/17/18 10:32 DC 01/17/18 11:03 600 MG Sodium Chloride (Sodium Chloride 0.9% Pf Inj) 100 ml STK-MED ONCE .ROUTE 01/17/18 10:45 01/17/18 10:46 DC 01/17/18 10:45 70 ML Bupivacaine Liposome (Exparel) 266 mg STK-MED ONCE .ROUTE 01/17/18 10:45 01/17/18 10:46 DC 01/17/18 10:45 7 MG Bupivacaine HCl (Marcaine 0.5% Pf Inj) 30 ml STK-MED ONCE .ROUTE 01/17/18 10:45 01/17/18 10:46 DC 01/17/18 10:45 20 ML Bupivacaine HCl/ Epinephrine Bitart (Sensorcaine/ Epinephrine 0.5% Mpf 1:200,000) 30 ml STK-MED ONCE .ROUTE 01/17/18 10:45 01/17/18 10:46 DC 01/17/18 10:45 30 ML Bacitracin (Bacitracin Inj) 50,000 units STK-MED ONCE .ROUTE 01/17/18 10:45 01/17/18 10:46 DC 01/17/18 10:45 50,000 UNITS Miscellaneous (Floseal Hemostatic Matrix 10ml) 15 ml ONE ONCE TOP 01/17/18 13:49 01/17/18 13:50 DC 01/17/18 13:49 15 ML Clindamycin Phosphate 600 mg/ Dextrose 54 ml @ 100 mls/hr Q8H IV 01/17/18 18:00 01/18/18 02:33 DC 01/18/18 02:17 100 MLS/HR Lorazepam (Ativan Tab) 0.5 mg Q8H PRN PO 01/17/18 14:00 02/16/18 13:59 01/18/18 08:26 0.5 MG Polyethylene (Miralax Powder Packet) 17 gm Q6 PO 01/19/18 06:00 02/18/18 05:59 01/20/18 05:20 17 GM Oxycodone HCl (Roxicodone Immediate Rel Tab) 5-10mg prn moderate to sev... Q4H PRN PO 01/17/18 14:30 01/31/18 14:29 01/20/18 07:38 10 MG Sodium Chloride 1,000 ml @ 150 mls/hr Q6H40M IV 01/17/18 13:56 01/18/18 09:32 DC 01/18/18 03:58 150 MLS/HR Acetaminophen (Tylenol Tab) 1,000 mg Q8H PRN PO 01/17/18 14:00 02/16/18 13:59 01/17/18 23:10 1,000 MG Senna/Docusate Sodium (Senokot S Tab) 2 tab HS PO 01/17/18 21:00 02/16/18 20:59 01/19/18 20:41 2 TAB Duloxetine HCl (Cymbalta Cap) 60 mg HS PO 01/17/18 21:00 02/16/18 20:59 01/19/18 20:42 60 MG Gabapentin (Neurontin Cap) 300 mg QID PO 01/17/18 17:00 01/18/18 09:34 DC 01/18/18 08:23 300 MG Levothyroxine Sodium (Synthroid Tab) 100 mcg DAILYBB PO 01/18/18 06:00 02/17/18 05:59 01/20/18 05:19 100 MCG Simvastatin (Zocor Tab) 40 mg QPM PO 01/17/18 21:00 02/16/18 20:59 01/19/18 20:42 40 MG Pantoprazole Sodium (Protonix Tab) 40 mg BID PO 01/17/18 21:00 02/16/18 20:59 01/20/18 07:35 40 MG Insulin Aspart (novoLOG ASPART) SLIDING SCALE ACHS SC 01/17/18 21:00 02/16/18 20:59 01/18/18 17:13 1 UNITS Insulin Glargine (Lantus Per Unit) 30 units TODAY@2100 SQ 01/17/18 21:00 01/17/18 23:59 DC 01/17/18 20:54 30 UNITS Gabapentin (Neurontin Cap) 300 mg QAM PO 01/19/18 09:00 02/16/18 16:59 01/20/18 07:35 300 MG Gabapentin (Neurontin Cap) 600 mg HS PO 01/18/18 21:00 02/17/18 20:59 01/19/18 20:42 600 MG Menthol (Nice Artem) 24 artem STK-MED ONCE ARTEM 01/18/18 10:30 01/18/18 10:31 DC 01/18/18 10:32 24 ARTEM Ketorolac Tromethamine (Toradol Inj) 30 mg Q6H PRN IV. 01/18/18 11:00 01/23/18 10:59 01/19/18 20:41 30 MG Metformin HCl (Glucophage Tab) 500 mg BIDM PO 01/18/18 17:45 02/17/18 17:44 01/20/18 07:35 500 MG Trimethoprim/ Sulfamethoxazole (Septra Ds 800/ 160MG Tab) 1 tab TODAY@1215 ONCE PO 01/20/18 12:15 01/20/18 12:16 DC 01/20/18 12:41 1 TAB (Savannah Valdovinos CRNP) Objective Vital Signs Date Time Temp Pulse Resp B/P (MAP) Pulse Ox O2 Delivery O2 Flow Rate FiO2 01/20/18 07:29 37.0 71 18 96 Room Air 01/20/18 07:00 Room Air 01/20/18 06:32 37.0 71 18 117/80 (92) 96 Room Air 01/19/18 23:15 Room Air 01/19/18 23:11 37.1 63 17 117/67 (84) 93 Room Air 01/19/18 15:15 97 Room Air 01/19/18 15:15 36.7 61 18 119/73 (88) 97 Room Air (Savannah Valdovinos CRNP) Physical Exam Notes: General: no distress Eyes: normal inspection, PERLL Respiratory: chest non tender, clear to auscultation, normal breath sounds, no respiratory distress, no accessory muscle use Cardiac: regular rate and rhythm, no rub or gallop, no murmur, no edema, no jvd GI/: active bowel sounds, no abd pain or tenderness, soft, non distended Extremities: normal range of motion, normal strength, non tender Neuro/Psych: alert and oriented x 3, normal mood and affect Skin: normal color, dry (Savannah Valdovinos CRNP) Laboratory Results Last 24 Hours Test 01/19/18 17:08 01/19/18 20:24 01/20/18 05:15 01/20/18 06:44 Bedside Glucose 117 mg/dl 114 mg/dl 94 mg/dl White Blood Count 10.96 K/uL Red Blood Count 3.37 M/uL Hemoglobin 10.2 g/dL Hematocrit 31.8 % Mean Corpuscular Volume 94.4 fL Mean Corpuscular Hemoglobin 30.3 pg Mean Corpuscular Hemoglobin Concent 32.1 g/dl RDW Standard Deviation 50.6 fL RDW Coefficient of Variation 14.8 % Platelet Count 281 K/uL Mean Platelet Volume 10.9 fL Test 01/20/18 09:55 01/20/18 12:01 Urine Color DK YELLOW Urine Appearance CLOUDY Urine pH 6.5 Urine Specific Jackson 1.020 Urine Protein 1+ Urine Glucose (UA) NEG Urine Ketones NEG Urine Occult Blood 3+ Urine Nitrite POS Urine Bilirubin NEG Urine Urobilinogen NEG Urine Leukocyte Esterase MODERATE Urine WBC (Auto) >30 /hpf Urine RBC (Auto) 10-30 /hpf Urine Hyaline Casts (Auto) 1-5 /lpf Urine Epithelial Cells (Auto) 10-20 /lpf Urine Bacteria (Auto) 4+ Urine Yeast (Auto) Bedside Glucose 94 mg/dl (Savannah Valdovinos CRNP) Assessment and Plan 57 y/o female with a history of symptomatic bradycardia s/p pacemaker, HLD, DM II, anxiety, neuropathy, hypothyroidism, vertigo, CKD stage II-III, and GERD who presents s/p removal of hardware, lumbar decompression and fusion with Dr. Chacon on 01/17 for medical management. S/p removal of hardware, lumbar decompression and fusion--POD #3, acute blood loss anemia -Pain management, DVT prophylaxis, and PT/OT as per primary team -BP improved, remains normotensive -LLE weakness, numbness, tingling continues to improve -Hgb stable postop - dropped to about 10 and remained stable UTI - symptomatic, UA with apparent infectin - UC pending - Bactrim x 3 days H/o symptomatic bradycardia s/p pacemaker--noted HLD--stable -Continue Zocor 40 mg PO qd DM II--stable -Metformin 500 mg PO BID resumed, pharmacy signed off glycemic management. BSGs well controlled -Insulin sliding scale -Check BSGs q ac and qhs -HgbA1c 6.2 here Anxiety, neuropathic pain, fibromyalgia -Continue Cymbalta 60 mg PO hs, gabapentin 300 mg PO qam and 600 mg PO hs Hypothyroidism -Continue Synthroid 100 mcg PO qd Vertigo -Continue meclizine prn CKD stage II-III--stable GERD -Prilosec converted to Protonix 40 mg PO BID Code Status -Level I, FULL RESUSCITATION STATUS (Savannah Valdovinos CRNP) [employer] Physician Supervision Note: I discussed with Savannah Valdovinos [employer] and agree with findings and plan as documented in the note. Any exceptions or clarifications are listed here: None Documented By: Tanmay Corrales (Tanmay Corrales M.D.)
[2018-01-22] MEDS ORDERED: NITR-5 PO (18:51)
--- NOTE | 2018-01-22 18:53 | Progress Note ---
Progress Note Date of Service Jan 22, 2018. Progress Note Followed up with patient over the phone concerning her microbiology showing her E.Coli UTI is resistant to Bactrim which is what she was discharged with. Sent a prescription for Macrobid 100 mg bid x 5 days to her pharmacy.
== END 2018-01-20 13:40 | disposition home or self-care (01) | DRG 454 ==
LOC: C.ACU 08:28 → C.3E 10:00 → ENRESERV 15:05
PROVIDERS: ADMIT Orthopaedic Surgery Orthopaedic Surgery of the Spine; ATTEND Orthopaedic Surgery Orthopaedic Surgery of the Spine
PROC: 0SG0071 Fusion of Lumbar Vertebral Joint with Autologous Tissue Substitute, Posterior Approach, Posterior Column, Open Approach (ICD-10-PCS; principal; 2018-01-17 11:15)
PROC: 0ST20ZZ Resection of Lumbar Vertebral Disc, Open Approach (ICD-10-PCS; principal; 2018-01-17 11:15)
PROC: 3E0U0GB Introduction of Recombinant Bone Morphogenetic Protein into Joints, Open Approach (ICD-10-PCS; principal; 2018-01-17 11:15)
PROC: 0SG00AJ Fusion of Lumbar Vertebral Joint with Interbody Fusion Device, Posterior Approach, Anterior Column, Open Approach (ICD-10-PCS; principal; 2018-01-17 11:15)
PROC: 0QP004Z Removal of Internal Fixation Device from Lumbar Vertebra, Open Approach (ICD-10-PCS; principal; 2018-01-17 11:15)
DX: M48.062 Spinal stenosis, lumbar region with neurogenic claudication (principal); N39.0 Urinary tract infection, site not specified; M43.16 Spondylolisthesis, lumbar region; Z88.8 Allergy status to other drugs, medicaments and biological substances; E78.5 Hyperlipidemia, unspecified; E11.40 Type 2 diabetes mellitus with diabetic neuropathy, unspecified; F41.9 Anxiety disorder, unspecified; N18.3 Chronic kidney disease, stage 3 (moderate); K21.9 Gastro-esophageal reflux disease without esophagitis; F17.210 Nicotine dependence, cigarettes, uncomplicated; Z95.0 Presence of cardiac pacemaker; E03.9 Hypothyroidism, unspecified